=== PATIENT | female | born 2000 | race Caucasian/White ===

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

== ENCOUNTER 2018-05-04 15:49 | Emergency (ER) | payer OTHER ==
[~2018-05-04] VITALS: Ht 152.4 cm; Wt 63.6 kg
[2018-05-04 15:56] VITALS: TEMP 97.7
[2018-05-04 17:41] VITALS: BP 114/79; PULSE 78
== END 2018-05-04 17:35 | disposition home or self-care (01) ==
LOC: COL.ER 15:49
DX: T78.40XA Allergy, unspecified, initial encounter (principal)
CPT/HCPCS: J1200; J2930; J8540

== ENCOUNTER 2018-05-18 05:17 | Inpatient (IN) | payer OTHER ==
[~2018-05-18] VITALS: Ht 152.4 cm; Wt 63.0 kg
[2018-05-18] VITALS (9 sets, daily range): BP systolic 119–135; BP diastolic 74–92; PULSE 81–115; TEMP 97.5–98.2
[2018-05-18 05:47] LABS: BASO # 0.1 (0.0-0.2); BASO % 0.8 % (0.0-2.0); EOS # 0.3 (0.0-0.7); EOS % 1.8 % (0-4.0); GRAN # 7.7 (1.4-6.5); GRAN % 54.2 % (42.2-75.2); HEMATOCRIT 39.5 % (35.0-45.0); HEMOGLOBIN 13.6 g/dl (12.0-15.0); LYMPH # 4.9 (1.2-3.4); LYMPH % 34.2 % (20.0-51.0); MEAN CELL VOLUME 80 fl (80.0-95.0); MEAN CORPUSCULAR HEMOGLOBIN 28 pg (26.0-32.0); MEAN CORPUSCULAR HGB CONC 34 g/dl (33.0-37.0); MEAN PLATELET VOLUME 9.1 fl (7.4-10.4); MONO # 1.3 (0.1-0.6); MONO % 8.8 % (1.7-9.3); PLATELET COUNT 442 K/mm3 (130-400); RED BLOOD COUNT 4.94 M/mm3 (4.10-5.30); REDCELL DISTRIBUTION WIDTH-CV 12.9 % (11.5-14.5)
[2018-05-18 05:57] LABS: ALBUMIN 3.9 gm/dL (3.5-5.0); BILIRUBIN,TOTAL 0.3 mg/dL (0.0-1.0); CALCIUM 9.2 mg/dL (8.4-10.2); CREATININE, serum 0.64 mg/dL (0.52-1.25); POTASSIUM 3.2 mmol/L (3.4-5.0); TOTAL PROTEIN 6.9 gm/dL (6.4-8.2)
[2018-05-18] MEDS ORDERED: ZOFRAN 4MG T4 MG/TAB PO (06:40)
[2018-05-18] MEDS ORDERED: NORCO 325 MG-51 TAB PO (06:40)
[2018-05-18] MEDS ORDERED: FLOMAX 0.40.4 MG/CAP PO (06:40)
[2018-05-18 08:16] LABS: COLLECTION METHOD CLEAN CATCH
[2018-05-18 08:32] LABS: MUCOUS Present /lpf; PH 5 (5-8); URINE APPEARANCE Clear; URINE BACTERIA Rare /hpf; URINE BILIRUBIN Negative (NEGATIVE); URINE BLOOD 1+ (NEGATIVE); URINE COLOR Yellow; URINE GLUCOSE Negative (NEGATIVE); URINE KETONE Negative (NEGATIVE); URINE LEUKOCYTE ESTERASE Trace (NEGATIVE); URINE NITRATE Positive (NEGATIVE); URINE PROTEIN(semi-quant) Negative (NEGATIVE); URINE UROBILINOGEN Negative (NEGATIVE)
[2018-05-19] VITALS (10 sets, daily range): BP systolic 94–139; BP diastolic 57–83; PULSE 89–132; TEMP 97.8–99.7; O2SAT 99
[2018-05-19 08:52] LABS: BASO # 0.1 (0.0-0.2); BASO % 0.3 % (0.0-2.0); GRAN # 14.3 (1.4-6.5); GRAN % 86.9 % (42.2-75.2); HEMATOCRIT 37.1 % (35.0-45.0); HEMOGLOBIN 12.4 g/dl (12.0-15.0); LYMPH # 1.1 (1.2-3.4); LYMPH % 6.9 % (20.0-51.0); MEAN CELL VOLUME 82 fl (80.0-95.0); MEAN CORPUSCULAR HEMOGLOBIN 27 pg (26.0-32.0); MEAN CORPUSCULAR HGB CONC 33 g/dl (33.0-37.0); MEAN PLATELET VOLUME 9.2 fl (7.4-10.4); MONO # 0.9 (0.1-0.6); MONO % 5.5 % (1.7-9.3); PLATELET COUNT 319 K/mm3 (130-400); RED BLOOD COUNT 4.52 M/mm3 (4.10-5.30)
[2018-05-20] VITALS: BP 104/62; PULSE 90; TEMP 97.6
[2018-05-20 04:00] VITALS: BP 107/65; PULSE 95; TEMP 97.9
[2018-05-20 08:00] VITALS: BP 95/60; PULSE 84; TEMP 98.6
[2018-05-20 12:00] VITALS: BP 104/65; PULSE 82; TEMP 98.4
[2018-05-20 15:17] VITALS: BP 129/85; PULSE 111; TEMP 98.7
[2018-05-20 19:57] VITALS: BP 129/73; PULSE 125; TEMP 100
[2018-05-21 00:10] VITALS: BP 119/64; PULSE 115; TEMP 98.5
[2018-05-21 04:09] VITALS: BP 124/81; PULSE 97; TEMP 98.5
[2018-05-21 07:22] VITALS: BP 137/87; PULSE 107
[2018-05-21] MEDS ORDERED: CIPRO 500MG TA500 MG PO (10:03)
[2018-05-21] MEDS ORDERED: FLOMAX 0.40.4 MG/CAP PO (10:03)
[2018-05-21] MEDS ORDERED: AZO URINARY PAI95 MG PO (10:06)
[2018-05-21] MEDS ORDERED: NORCO 325 MG-51 TAB PO ×2 (10:10→11:05)
[2018-05-21 11:49] VITALS: BP 124/62; PULSE 109; TEMP 99.3
== END 2018-05-21 13:50 | disposition home or self-care (01) | DRG 872 ==
LOC: COL.ER 05:17 → SURG 09:16 → ICU 09:16 → SURG 05-20 14:15
PROVIDERS: Emergency Medicine; Urology
PROC: 0T768DZ Dilation of Right Ureter with Intraluminal Device, Via Natural or Artificial Opening Endoscopic (ICD-10-PCS; principal; 2018-05-19 09:00)
PROC: BT1D1ZZ Fluoroscopy of Right Kidney, Ureter and Bladder using Low Osmolar Contrast (ICD-10-PCS; 2018-05-19 09:00)
DX: A41.9 Sepsis, unspecified organism (principal); N20.1 Calculus of ureter; N39.0 Urinary tract infection, site not specified; R00.0 Tachycardia, unspecified
CPT/HCPCS: OP; 99239; A9284; C1769; C2617; G0378; J0690; J1100; J1170; J1200; J1885; J1956; J2270; J2405; J2543; J2550; J2704; J3010; J7030; J7120; Q9967

== ENCOUNTER 2018-06-02 06:23 | Day surgery (SDC) | payer OTHER ==
[~2018-06-02] VITALS: Ht 152.4 cm; Wt 71.8 kg
[2018-06-02] VITALS (7 sets, daily range): BP systolic 101–115; BP diastolic 56–64; PULSE 69–89; TEMP 97.7
[~2018-06-02 06:23] MED LIST changes: +AZO URINARY PAI95 MG PO; +CIPRO 500MG TA500 MG PO; +FLOMAX 0.40.4 MG/CAP PO; +ZOFRAN 4MG T4 MG/TAB PO
[2018-06-02] MEDS ORDERED: SENNA8.6 MG PO (09:33)
== END 2018-06-02 13:00 | disposition home or self-care (01) ==
LOC: SDCO 06:23
DX: N20.1 Calculus of ureter (principal); A41.9 Sepsis, unspecified organism; N39.0 Urinary tract infection, site not specified; Z83.3 Family history of diabetes mellitus; Z82.49 Family history of ischemic heart disease and other diseases of the circulatory system; Z84.1 Family history of disorders of kidney and ureter
CPT/HCPCS: C1769; C2617; J0690; J1100; J1885; J2405; J2704; J3010; J7120

== ENCOUNTER 2018-10-16 13:53 | Emergency (ER) | payer OTHER ==
[~2018-10-16] VITALS: Ht 154.9 cm; Wt 77.5 kg
[2018-10-16 14:05] VITALS: BP 141/88; PULSE 91; TEMP 99.8
== END 2018-10-16 15:24 | disposition home or self-care (01) ==
LOC: COL.ER 13:53
DX: Z04.41 Encounter for examination and observation following alleged adult rape (principal)

== ENCOUNTER → 2018-10-16 | Outpatient (CLI) | payer OTHER ==
[~2018-10-16] MED LIST changes: +SENNA8.6 MG PO
[2018-10-16 17:20] LABS: TRICYCLIC ANTIDEPRESS URINE NEGATIVE
== END ==
LOC: LDRO 14:25
PROVIDERS: Family Medicine
DX: T74.21XA Adult sexual abuse, confirmed, initial encounter (principal)

== ENCOUNTER → 2018-10-16 | Outpatient (REF) | LOC: LDRO 14:28 | DX: T74.21XA Adult sexual abuse, confirmed, initial encounter (principal) ==

== ENCOUNTER 2020-09-05 12:29 | Emergency (ER) | payer OTHER ==
[~2020-09-05] VITALS: Ht 152.4 cm; Wt 72.7 kg
[2020-09-05 12:37] VITALS: TEMP 98.9
[2020-09-05 15:10] VITALS: BP 132/92; PULSE 89
== END 2020-09-05 15:17 | disposition home or self-care (01) ==
LOC: COL.ER 12:29
DX: S00.93XA Contusion of unspecified part of head, initial encounter (principal); S20.219A Contusion of unspecified front wall of thorax, initial encounter; S00.83XA Contusion of other part of head, initial encounter; R40.2410 Glasgow coma scale score 13-15, unspecified time; Y04.8XXA Assault by other bodily force, initial encounter

== ENCOUNTER 2020-09-07 15:23 | Emergency (ER) | payer OTHER ==
[~2020-09-07] VITALS: Ht 152.4 cm; Wt 72.7 kg
[2020-09-07 15:32] VITALS: TEMP 98.4
[2020-09-07] MEDS ORDERED: FLEXERIL 1010 MG/TAB PO (15:49)
[2020-09-07 17:07] VITALS: BP 121/70; PULSE 80
== END 2020-09-07 17:07 | disposition home or self-care (01) ==
LOC: COL.ER 15:23
DX: S06.0X9A Concussion with loss of consciousness of unspecified duration, initial encounter (principal); Y09 Assault by unspecified means
CPT/HCPCS: J1885; J2060

== ENCOUNTER 2020-10-24 01:11 | Emergency (ER) | payer OTHER ==
[~2020-10-24] VITALS: Ht 152.4 cm; Wt 72.7 kg
[~2020-10-24 01:11] MED LIST changes: +FLEXERIL 1010 MG/TAB PO
[2020-10-24 01:20] VITALS: TEMP 98
[2020-10-24 03:30] VITALS: BP 127/89; PULSE 85
== END 2020-10-24 03:32 | disposition home or self-care (01) ==
LOC: COL.ER 01:11
DX: M25.521 Pain in right elbow (principal); M25.511 Pain in right shoulder; M25.531 Pain in right wrist; V49.40XA Driver injured in collision with unspecified motor vehicles in traffic accident, initial encounter